=== PATIENT | male | born 1945 | race Caucasian/White ===

== ENCOUNTER 2024-11-01 15:31 | Emergency (ER) | payer MEDICARE ==
[~2024-11-01] VITALS: Ht 167.6 cm; Wt 93.9 kg
[2024-11-01 16:55] LABS: BASOPHILS % 0.7 % (0.0-1.0); EOSINOPHILS % 0.3 % (0.0-6.0); LYMPHOCYTES % 7.2 % (18.0-39.1); MONOCYTES % 6.6 % (4.4-11.3); NEUTROPHILS % 84.5 % (38.7-80.0); RED CELL DISTRIBUTION WIDTH 12.6 % (11.7-14.4)
[2024-11-01 17:08] LABS: EST GLOMERULAR FILTRATION RATE 80 ML/MIN (>=60)
[2024-11-01] MEDS: SODIUM CHLORIDE 0.9% 1000ML 1,000 ML IV STA (17:41)
[2024-11-01 17:43] VITALS: BP 160/102
[2024-11-01] MEDS: ONDANSETRON HCL INJ 2MG/ML 2ML 2 MG/ML VIAL IV STA (17:43)
[2024-11-01] MEDS: MANNITOL 25% 12.5GM/50 ML VIAL IV ONE (17:43)
[2024-11-01 18:10] VITALS: PULSE 106; RESP 24; TEMP 98.5; O2SAT 96
[2024-11-01] MEDS: Morphine 4mg INJECTION 4 MG/ML INJ IV ONE (18:12)
== END 2024-11-01 18:25 | disposition short-term general hospital (02) ==
LOC: ER 16:16
DX: S06.5X0A Traumatic subdural hemorrhage without loss of consciousness, initial encounter (principal); W06.XXXA Fall from bed, initial encounter; Y92.013 Bedroom of single-family (private) house as the place of occurrence of the external cause
CPT/HCPCS: 36415; 70450; 80053; 82550; 83880; 84484; 85025; 93005; 99284; J2150; J2405